=== PATIENT | male | born 1950 | race Hispanic/Latino ===

== ENCOUNTER 2019-10-05 08:37 | Inpatient (IN) | payer MEDICARE ==
[2019-10-05] MEDS: INSULIN REGULAR, HUMAN 100 UNITS/1 ML SUB-Q SCH ×2 (17:16→21:40)
[2019-10-05 21:05] LABS: Hematocrit 34.3 % (35.5-45.6); Hemoglobin 11.1 gm/dl (11.8-15.2); Mean Corpuscular HGB Conc 32 % (32-34); Mean Corpuscular Volume 80 fl (84-94); Platelet Count 218 K/mm3 (140-440); Red Blood Count 4.29 M/mm3 (3.65-5.03); Red Cell Distribution Width 18.9 % (13.2-15.2)
[2019-10-05 21:14] LABS: Calcium 9.3 mg/dL (8.4-10.2)
[2019-10-05 21:34] LABS: Chol/HDL Ratio 2.11 %
--- NOTE | 2019-10-06 07:22 | History and Physical Report ---
GP History & Physical - History of Present Illness Date of admission: 10/05/19 Date of Examination: 10/06/19 Reason for Admission: Danger to self Chief Complaint: Found in a ditch and confused History of Present Illness: 69 year old, , disabled male, admitted onto unit at 1426 via stretcher accompanied by 2 EMS personnel 10/05/2019. Patient has a medical history of COPD, DM, GERD, HTN, pancreatitis, Hepatitis C, arthritis, psychiatric hx of depression and anxiety. Per reports, admitted to [facility] twice. The first visit, patient was mildly confused with acute renal failure, with creatinine of 2.57, he was treated, and left AMA. During his second admission, it was reported police found him in a ditch, where he was too weak to ambulate. Patient transferred and treated in ICU, during admission, patient did not recall falling into a ditch. When meeting with the patient today he presented as calm, cooperative and pleasant. Patient stated that he has been battling with depression and anxiety for 20 years and was prescribed Elevil, Temazepan, Xanax and Cymbalta. He stated that the Xanax which he has been taking for 1 year benefits his sleep well and he wants to continue taking it. His only complaint is that the medication help him sleep so well that he always have these vivid dreams but he also cannot sleep without it. The concern was expressed that Xanax may be the cause of the patient loosing his memory, so patient is open to exploring new medications and is awaiting his new treatment plan. Patient stated that he then begin having problems remembering things or being out of it about a month ago. When asking the patient if he could recall what happened he stated, "They say they found me in a ditch but I don't remember that, last thing I remember was sitting next to two really nice officers and they talked to me and brought me to the hospital". Patient is A&O x 4, denied dementia diagnosis, but states that the incident of wondering off and not having any recall has happened more than once. Patient denies drinking and confirms that he smokes Marijuana socially with friends. He states that his mood is great and he feels great. Patient denies SI/HI/AVH, denies hallucination and paranoia. Pt confirms that he has a history of psychiatric problems and attempted suicide 10 years ago at a long term by taking some pills but regretted it and asked that 911 be called. Patient denies any family history of psych problems, denies involvement with the law, and denies having a gun. MSE Orientation: A&Ox4 Affect: Calm Mood: Pleasant Thought Process: Organized Perceptions: reality Speech: normal pace Concentration: focused Motor activity: normal Level of consciousness: alert, aware and oriented Memory: Impaired Interaction: Cooperative and Pleasant Mini-Mental Status Exam: 19 out of 30 Legal Status: Voluntary Patient Problems: Current Active Problems Acute psychosis (Acute) Dementia with behavioral disturbance (Acute) MDD (major depressive disorder), recurrent episode, moderate (Acute) Reaction to Hospitalization: Accepting Medications and Allergies Allergies Allergy/AdvReac Type Severity Reaction Status Date / Time Penicillins AdvReac Hives Verified 10/05/19 10:10 Home Medications Medication Instructions Recorded Confirmed Last Taken Type Amitriptyline [Elavil] 50 mg PO DAILY 10/05/19 10/05/19 Unknown History DULoxetine [Cymbalta] 30 mg PO DAILY 10/05/19 10/05/19 Unknown History Gabapentin [Neurontin] 800 mg PO TID 10/05/19 10/05/19 Unknown History Lasix TAB 20 mg PO PRN PRN 10/05/19 10/05/19 Unknown History NIFEdipine XL [Procardia Xl] 90 mg PO DAILY 10/05/19 10/05/19 Unknown History Omeprazole 40 mg PO DAILY 10/05/19 10/05/19 Unknown History Simvastatin 10 mg PO HS 10/05/19 10/05/19 Unknown History Temazepam [Restoril] 30 mg PO HS 10/05/19 10/05/19 Unknown History metFORMIN XR 750 mg PO DAILY 10/05/19 10/05/19 Unknown History Active Meds: Active Medications Insulin Human Regular (Humulin R) 0 units SUB-Q [facility]; Protocol Last Admin: 10/05/19 21:40 Dose: 4 units Documented by: Substance History - Substance History Drug Use: marijuana Hx Tobacco Use: Yes Tobacco Type: Cigarettes Alcohol Use: No Past psychiatric history - Past Medical History Past Medical History: COPD, diabetes, GERD, hypertension, other (pancreatitis, Hep C, Arthritis) - past Psychiatric treatment and history Psych: Anxiety, Depression - Social History Social history: Review of Systems Psychiatric: anxiety, memory loss, depression, confusion Results - Results Labs/Vitals: Laboratory Last Values WBC 7.2 K/mm3 (4.5-11.0) 10/05/19 20:39 RBC 4.29 M/mm3 (3.65-5.03) 10/05/19 20:39 Hgb 11.1 gm/dl (11.8-15.2) L 10/05/19 20:39 Hct 34.3 % (35.5-45.6) L 10/05/19 20:39 MCV 80 fl (84-94) L 10/05/19 20:39 MCH 26 pg (28-32) L 10/05/19 20:39 MCHC 32 % (32-34) 10/05/19 20:39 RDW 18.9 % (13.2-15.2) H 10/05/19 20:39 Plt Count 218 K/mm3 (140-440) 10/05/19 20:39 Lymph % (Auto) [place] 10/05/19 20:39 [place] % (Auto) [employer] [place] 10/05/19 20:39 Eos % (Auto) [place] 10/05/19 20:39 Baso % (Auto) [place] 10/05/19 20:39 Lymph # [place] 10/05/19 20:39 [place] # [employer] [place] 10/05/19 20:39 Eos # [place] 10/05/19 20:39 Baso # [place] 10/05/19 20:39 Seg Neutrophils % [place] 10/05/19 20:39 Seg Neutrophils # [place] 10/05/19 20:39 Sodium 138 mmol/L (137-145) 10/05/19 20:37 Potassium 4.8 mmol/L (3.6-5.0) 10/05/19 20:37 Chloride 100.5 mmol/L (98-107) 10/05/19 20:37 Carbon Dioxide 20 mmol/L (22-30) L 10/05/19 20:37 Anion Gap 22 mmol/L 10/05/19 20:37 BUN 38 mg/dL (9-20) H 10/05/19 20:37 Creatinine 1.3 mg/dL (0.8-1.5) 10/05/19 20:37 Estimated GFR 55 ml/min 10/05/19 20:37 BUN/Creatinine Ratio 29 % 10/05/19 20:37 Glucose 317 mg/dL (75-100) H 10/05/19 20:37 POC Glucose 328 (70-105) H 10/05/19 20:21 Hemoglobin A1c 7.3 % (4-6) H 10/05/19 20:34 Calcium 9.3 mg/dL (8.4-10.2) 10/05/19 20:37 Total Bilirubin 0.20 mg/dL (0.1-1.2) 10/05/19 20:37 AST 44 units/L (5-40) H 10/05/19 20:37 ALT 85 units/L (7-56) H 10/05/19 20:37 Alkaline Phosphatase 301 units/L (35-129) H 10/05/19 20:37 Total Protein 7.8 g/dL (6.3-8.2) 10/05/19 20:37 Albumin 4.0 g/dL (3.9-5) 10/05/19 20:37 Albumin/Globulin Ratio 1.1 % 10/05/19 20:37 Triglycerides 46 mg/dL (2-149) 10/05/19 20:37 Cholesterol 190 mg/dL (50-199) 10/05/19 20:37 LDL Cholesterol Direct 97 mg/dL (50-130) 10/05/19 20:37 HDL Cholesterol 90 mg/dL (40-59) H 10/05/19 20:37 Cholesterol/HDL Ratio 2.11 % 10/05/19 20:37 Last Vital Signs Temp 97.6 F 10/05/19 19:45 Pulse 82 10/05/19 19:45 Resp 20 10/05/19 19:45 BP 147/72 10/05/19 19:45 Pulse Ox 97 10/05/19 19:45 Physical Examination - Constitutional Vitals: Vital Signs Temp Pulse Resp BP Pulse Ox 97.6 F 82 20 147/72 97 10/05/19 19:45 10/05/19 19:45 10/05/19 19:45 10/05/19 19:45 10/05/19 19:45 Temperature -Last 24 Hours Temperature 97.6 F Temperature 97.8 F General appearance: Present: no acute distress - EENT Eyes: Present: PERRL, EOM intact ENT: hearing intact, clear oral mucosa - Neck Neck: Present: supple, normal ROM - Respiratory Respiratory effort: normal Mental Status Exam - Vital signs Last Vital Signs Temp 97.6 F 10/05/19 19:45 Pulse 82 10/05/19 19:45 Resp 20 10/05/19 19:45 BP 147/72 10/05/19 19:45 Pulse Ox 97 10/05/19 19:45 Assessment and Plan - Psychiatric problem (1) Acute psychosis Current Visit: Yes Status: Acute plan to address problem: Patient will be admitted for inpatient psychiatric evaluation, medication adjustment and close monitoring The patient's behavior, mood, sleep and appetite will be closely monitored. Patient will be enrolled in individual and group therapeutic sessions and encouraged to attend. Patient will be provided with a safe and structured environment. Patient's physical health needs will be addressed by the Hospitalist. Social Assessment will be completed and the [employer] will work with patient and family to ensure a suitable and safe disposition Medication adjustment will be made as clinically indicated The patient agreed on the treatment plan, understood the risk, benefit, alternative treatment, potential consequence of no treatment, and gave informed consent. (2) MDD (major depressive disorder), recurrent episode, moderate Current Visit: Yes Status: Acute (3) Dementia with behavioral disturbance Current Visit: Yes Status: Acute Physician Certification - Certification Statement Physician Certification Statement: This is an acknowledgement statement that JOHN MONGE is a 69 year old M who requires inpatient psychiatric admission for treatment which could reasonably be expected to improve the patient's condition for Estimated period of time patient will need to remain in the hospital: [ ] Plan for post-hospital care: [ ]
[2019-10-06] MEDS: INSULIN REGULAR, HUMAN 100 UNITS/1 ML SUB-Q SCH ×4 (08:11→22:18)
[2019-10-06] MEDS ORDERED: NON-FORMULARY EACH (Lasix Tab 20 MG) PO PRN (10:45)
[2019-10-06] MEDS ORDERED: METFORMIN 750 MG PO SCH (11:00)
[2019-10-06] MEDS ORDERED: NON-FORMULARY EACH (Omeprazole [Omeprazole] 40 MG) PO SCH (11:00)
[2019-10-06] MEDS ORDERED: DULoxetine 30 MG CAP PO SCH (11:00)
[2019-10-06] MEDS ORDERED: FUROSEMIDE 20 MG TAB PO PRN (11:39)
[2019-10-06] MEDS: clonazePAM 0.5 MG TAB PO SCH ×2 (12:55→21:27)
[2019-10-06] MEDS: NIFEdipine XL 90 MG TAB PO SCH (12:55)
[2019-10-06] MEDS: PANTOPRAZOLE 40 MG TAB PO SCH (12:55)
[2019-10-06] MEDS ORDERED: NON-FORMULARY EACH (Gabapentin [Neurontin] 800 MG) PO SCH (14:00)
[2019-10-06] MEDS: GABAPENTIN 400 MG CAP PO SCH ×2 (15:24→21:26)
--- NOTE | 2019-10-06 16:17 | Consultation ---
History of Present Illness - Reason for Consult Consult date: 10/06/19 Hypertension, Diabetes, CHF Requesting physician: MARYLIN TERRY - History of Present Illness patient is 69 yo admitted to Geripsych unit for acute psycosis, depression. he has multiple medical co-morbidities including diabetes, hypertension, CHF, COPD. Hepatitis C which he says was treated 3 yrs ago. The hospitalist service has been consulted for management of multiple medical co-morbidities. Of note he recently had TATUM. Today no chest pain, no shortness of breath. Past History Past Medical History: COPD, diabetes, GERD, hypertension, other (pancreatitis, Hep C, Arthritis) Past Surgical History: cholecystectomy, Other (Left scrotal mass,LN biopsy,broken thumb) Social history: , smoking (Smokes 1 pack/day). denies: alcohol abuse Family history: no significant family history Medications and Allergies Allergies Allergy/AdvReac Type Severity Reaction Status Date / Time Penicillins AdvReac Hives Verified 10/05/19 10:10 Home Medications Medication Instructions Recorded Confirmed Last Taken Type Amitriptyline [Elavil] 50 mg PO DAILY 10/05/19 10/05/19 Unknown History DULoxetine [Cymbalta] 30 mg PO DAILY 10/05/19 10/05/19 Unknown History Gabapentin [Neurontin] 800 mg PO TID 10/05/19 10/05/19 Unknown History Lasix TAB 20 mg PO PRN PRN 10/05/19 10/05/19 Unknown History NIFEdipine XL [Procardia Xl] 90 mg PO DAILY 10/05/19 10/05/19 Unknown History Omeprazole 40 mg PO DAILY 10/05/19 10/05/19 Unknown History Simvastatin 10 mg PO HS 10/05/19 10/05/19 Unknown History Temazepam [Restoril] 30 mg PO HS 10/05/19 10/05/19 Unknown History metFORMIN XR 750 mg PO DAILY 10/05/19 10/05/19 Unknown History Active Meds: Active Medications Clonazepam (Klonopin) 1 mg PO BID [facility] Last Admin: 10/06/19 12:55 Dose: 1 mg Documented by: Furosemide (Lasix) 20 mg PO PRN PRN PRN Reason: Edema Gabapentin (Gabapentin) 800 mg PO TID [facility] Last Admin: 10/06/19 15:24 Dose: 800 mg Documented by: Insulin Human Regular (Humulin R) 0 units SUB-Q [facility]; Protocol Last Admin: 10/06/19 12:54 Dose: 2 units Documented by: Mirtazapine (Remeron) 15 mg PO QHS [facility] Miscellaneous Medication (Metformin Xr) 750 mg PO DAILY [facility] Nifedipine (Procardia Xl) 90 mg PO DAILY [facility] Last Admin: 10/06/19 12:55 Dose: 90 mg Documented by: Pantoprazole Sodium (Protonix) 40 mg PO DAILY [facility] Last Admin: 10/06/19 12:55 Dose: 40 mg Documented by: Pravastatin Sodium (Pravachol) 20 mg PO QHS [facility] Exam - Physical Exam Narrative exam: Gen: Not in acute distress, sitting up in chair, HEENT: Normocephalic, atraumatic Neck: supple, no JVD Heart: S1 and S2 reg, no murmurs, rubs or gallop Lungs: Clear to auscultation bilaterally, Abd: soft, non tender, non distended, normal BS, Ext: No edema, no clubbing, no cyanosis Neuro: Awake, alert, oriented X 3, no focal neurological signs - Constitutional Vitals: Temp Pulse Resp BP Pulse Ox 97.6 F 82 20 147/72 97 10/05/19 19:45 10/05/19 19:45 10/05/19 19:45 10/05/19 19:45 10/05/19 19:45 Results - Labs CBC & Chem 7: 10/05/19 20:39 10/05/19 20:37 Labs: Abnormal lab results 10/05/19 10/05/19 10/05/19 Range/Units 16:58 20:21 20:34 Hgb (11.8-15.2) gm/dl Hct (35.5-45.6) % MCV (84-94) fl MCH (28-32) pg RDW (13.2-15.2) % Carbon Dioxide (22-30) mmol/L BUN (9-20) mg/dL Glucose (75-100) mg/dL POC Glucose 362 H 328 H (70-105) Hemoglobin A1c 7.3 H (4-6) % AST (5-40) units/L ALT (7-56) units/L Alkaline Phosphatase (35-129) units/L HDL Cholesterol (40-59) mg/dL 10/05/19 10/05/19 10/06/19 Range/Units 20:37 20:39 08:04 Hgb 11.1 L (11.8-15.2) gm/dl Hct 34.3 L (35.5-45.6) % MCV 80 L (84-94) fl MCH 26 L (28-32) pg RDW 18.9 H (13.2-15.2) % Carbon Dioxide 20 L (22-30) mmol/L BUN 38 H (9-20) mg/dL Glucose 317 H (75-100) mg/dL POC Glucose 149 H (70-105) Hemoglobin A1c (4-6) % AST 44 H (5-40) units/L ALT 85 H (7-56) units/L Alkaline Phosphatase 301 H (35-129) units/L HDL Cholesterol 90 H (40-59) mg/dL 10/06/19 Range/Units 12:34 Hgb (11.8-15.2) gm/dl Hct (35.5-45.6) % MCV (84-94) fl MCH (28-32) pg RDW (13.2-15.2) % Carbon Dioxide (22-30) mmol/L BUN (9-20) mg/dL Glucose (75-100) mg/dL POC Glucose 235 H (70-105) Hemoglobin A1c (4-6) % AST (5-40) units/L ALT (7-56) units/L Alkaline Phosphatase (35-129) units/L HDL Cholesterol (40-59) mg/dL Assessment and Plan Acute Psychosis Admitted to Geripsych unit management as per Psychiatrist Depression meds as per Psychiatry Diabetes mellitus type 2 was on Metformin at home Add Novolin 70/30 for better control fingerstick glucose qac and hs Hypertension Resumed home meds Monitor BP Chronic CHF On Lasix if leg edema History of Hep C. says he wqas treated 3 yrs ago COPD stable No SOB Elevated LFT Unclear if this is related to Hep C Repeat CMP in am Arthritis Thanks Dr. Terry for consulting us. Will follow peripherally.
[2019-10-06] MEDS: PRAVASTATIN 20 MG TAB PO SCH (21:26)
[2019-10-06] MEDS: MIRTAZAPINE 15 MG TAB PO SCH (21:27)
[2019-10-06] MEDS ORDERED: NON-FORMULARY EACH (Simvastatin [Simvastatin] 10 MG) PO SCH (22:00)
[2019-10-06] MEDS: ACETAMINOPHEN 325 MG TAB PO PRN (22:17)
[2019-10-07] MEDS: INSULIN REGULAR, HUMAN 100 UNITS/1 ML SUB-Q SCH ×4 (07:53→21:15)
[2019-10-07] MEDS: metFORMIN 500 MG TAB PO SCH ×2 (09:38→16:35)
[2019-10-07] MEDS: NIFEdipine XL 90 MG TAB PO SCH (09:38)
[2019-10-07] MEDS: GABAPENTIN 400 MG CAP PO SCH ×3 (09:38→21:13)
[2019-10-07] MEDS: clonazePAM 0.5 MG TAB PO SCH ×2 (09:38→21:14)
[2019-10-07] MEDS: INSULIN NPH/REGULAR 70/30 INJ SUB-Q SCH ×2 (09:46→21:04)
[2019-10-07 10:54] LABS: Hematocrit 35.3 % (35.5-45.6); Hemoglobin 11.5 gm/dl (11.8-15.2); Mean Corpuscular HGB Conc 33 % (32-34); Mean Corpuscular Volume 78 fl (84-94); Platelet Count 222 K/mm3 (140-440); Red Blood Count 4.52 M/mm3 (3.65-5.03); Red Cell Distribution Width 18.3 % (13.2-15.2)
[2019-10-07 11:00] LABS: Alanine Aminotransferase 72 units/L (7-56); Albumin 3.6 g/dL (3.9-5); BUN/Creatinine Ratio 24; Blood Urea Nitrogen 29 mg/dL (9-20); Calcium 8.7 mg/dL (8.4-10.2); Hemolysis Index 5
[2019-10-07] MEDS: PANTOPRAZOLE 40 MG TAB PO SCH (12:10)
--- NOTE | 2019-10-07 13:14 | Progress Note ---
Subjective Date of service: 10/07/19 Subjective Comment: Patient seen this morning. He is alert, fully oriented, calm and pleasant. He reports good mood. He denies SI/HI/AVH/Paranoia. He is compliant with meds and denies side effects. Per Nursing Notes: patient is alert and oriented x's 4. he is calm, pleasant, and cooperative. currently compliant with PO medications. denies si/hi/avh. patient c/o having nightmares last night. patient is interacting appropriately with his peers. patient ambulates independently and voices any concerns. no signs of agitation noted. attends group. will continue to monitor for safety. Objective - Criteria for Continued Treatment Criteria for Continued Treatment: Improving Level of Functioning, Stablizing Level of Functioning, Improving Emotional/Socia - Mental Status Mental Status: Alert - Objective Observation Participation Level: Full Assessment and Plan - Patient Problems (1) Acute psychosis Current Visit: Yes Status: Acute Plan to address problem: Patient will be admitted for inpatient psychiatric evaluation, medication adjustment and close monitoring The patient's behavior, mood, sleep and appetite will be closely monitored. Patient will be enrolled in individual and group therapeutic sessions and encouraged to attend. Patient will be provided with a safe and structured environment. Patient's physical health needs will be addressed by the Hospitalist. Social Assessment will be completed and the Psych Rn will work with patient and family to ensure a suitable and safe disposition Medication adjustment will be made as clinically indicated The patient agreed on the treatment plan, understood the risk, benefit, alternative treatment, potential consequence of no treatment, and gave informed consent. (2) MDD (major depressive disorder), recurrent episode, moderate Current Visit: Yes Status: Acute (3) Dementia with behavioral disturbance Current Visit: Yes Status: Acute Medications and Allergies Allergies Allergy/AdvReac Type Severity Reaction Status Date / Time Penicillins AdvReac Hives Verified 10/05/19 10:10 Home Medications Medication Instructions Recorded Confirmed Last Taken Type Amitriptyline [Elavil] 50 mg PO DAILY 10/05/19 10/05/19 Unknown History DULoxetine [Cymbalta] 30 mg PO DAILY 10/05/19 10/05/19 Unknown History Gabapentin [Neurontin] 800 mg PO TID 10/05/19 10/05/19 Unknown History Lasix TAB 20 mg PO PRN PRN 10/05/19 10/05/19 Unknown History NIFEdipine XL [Procardia Xl] 90 mg PO DAILY 10/05/19 10/05/19 Unknown History Omeprazole 40 mg PO DAILY 10/05/19 10/05/19 Unknown History Simvastatin 10 mg PO HS 10/05/19 10/05/19 Unknown History Temazepam [Restoril] 30 mg PO HS 10/05/19 10/05/19 Unknown History metFORMIN XR 750 mg PO DAILY 10/05/19 10/05/19 Unknown History Active Meds: Active Medications Acetaminophen (Tylenol) 650 mg PO Q6H PRN PRN Reason: Pain, Mild (1-3) Last Admin: 10/06/19 22:17 Dose: 650 mg Documented by: Clonazepam (Klonopin) 1 mg PO BID [facility] Last Admin: 10/07/19 09:38 Dose: 1 mg Documented by: Furosemide (Lasix) 20 mg PO PRN PRN PRN Reason: Edema Gabapentin (Gabapentin) 800 mg PO TID [facility] Last Admin: 10/07/19 09:38 Dose: 800 mg Documented by: Insulin Human Isoph/Insulin Regular (Humulin 70/30) 10 unit SUB-Q [facility] Last Admin: 10/07/19 09:46 Dose: 10 unit Documented by: Insulin Human Regular (Humulin R) 0 units SUB-Q [facility]; Protocol Last Admin: 10/07/19 12:06 Dose: Not Given Documented by: Metformin HCl (Glucophage) 500 mg PO BIDDIAB [facility] Last Admin: 10/07/19 09:38 Dose: 500 mg Documented by: Mirtazapine (Remeron) 15 mg PO QHS [facility] Last Admin: 10/06/19 21:27 Dose: 15 mg Documented by: Nifedipine (Procardia Xl) 90 mg PO DAILY [facility] Last Admin: 10/07/19 09:38 Dose: 90 mg Documented by: Pantoprazole Sodium (Protonix) 40 mg PO DAILY [facility] Last Admin: 10/07/19 12:10 Dose: 40 mg Documented by: Pravastatin Sodium (Pravachol) 20 mg PO QHS [facility] Last Admin: 10/06/19 21:26 Dose: 20 mg Documented by: Results - Results Labs/Vitals: Laboratory Last Values WBC 7.5 K/mm3 (4.5-11.0) 10/07/19 10:06 RBC 4.52 M/mm3 (3.65-5.03) 10/07/19 10:06 Hgb 11.5 gm/dl (11.8-15.2) L 10/07/19 10:06 Hct 35.3 % (35.5-45.6) L 10/07/19 10:06 MCV 78 fl (84-94) L 10/07/19 10:06 MCH 26 pg (28-32) L 10/07/19 10:06 MCHC 33 % (32-34) 10/07/19 10:06 RDW 18.3 % (13.2-15.2) H 10/07/19 10:06 Plt Count 222 K/mm3 (140-440) 10/07/19 10:06 Lymph % (Auto) [place] 10/05/19 20:39 [place] % (Auto) [place] 10/05/19 20:39 Eos % (Auto) [place] 10/05/19 20:39 Baso % (Auto) [place] 10/05/19 20:39 Lymph # [place] 10/05/19 20:39 [place] # [place] 10/05/19 20:39 Eos # [place] 10/05/19 20:39 Baso # [place] 10/05/19 20:39 Seg Neutrophils % [place] 10/05/19 20:39 Seg Neutrophils # [place] 10/05/19 20:39 Sodium 139 mmol/L (137-145) 10/07/19 10:06 Potassium 4.3 mmol/L (3.6-5.0) 10/07/19 10:06 Chloride 102.5 mmol/L (98-107) 10/07/19 10:06 Carbon Dioxide 24 mmol/L (22-30) 10/07/19 10:06 Anion Gap 17 mmol/L 10/07/19 10:06 BUN 29 mg/dL (9-20) H 10/07/19 10:06 Creatinine 1.2 mg/dL (0.8-1.5) 10/07/19 10:06 Estimated GFR > 60 ml/min 10/07/19 10:06 BUN/Creatinine Ratio 24 % 10/07/19 10:06 Glucose 260 mg/dL (75-100) H 10/07/19 10:06 POC Glucose 79 (70-105) 10/07/19 12:05 Hemoglobin A1c 7.3 % (4-6) H 10/05/19 20:34 Calcium 8.7 mg/dL (8.4-10.2) 10/07/19 10:06 Total Bilirubin 0.20 mg/dL (0.1-1.2) 10/07/19 10:06 AST 40 units/L (5-40) 10/07/19 10:06 ALT 72 units/L (7-56) H 10/07/19 10:06 Alkaline Phosphatase 269 units/L (35-129) H 10/07/19 10:06 Total Protein 6.8 g/dL (6.3-8.2) 10/07/19 10:06 Albumin 3.6 g/dL (3.9-5) L 10/07/19 10:06 Albumin/Globulin Ratio 1.1 % 10/07/19 10:06 Triglycerides 46 mg/dL (2-149) 10/05/19 20:37 Cholesterol 190 mg/dL (50-199) 10/05/19 20:37 LDL Cholesterol Direct 97 mg/dL (50-130) 10/05/19 20:37 HDL Cholesterol 90 mg/dL (40-59) H 10/05/19 20:37 Cholesterol/HDL Ratio 2.11 % 10/05/19 20:37 Last Vital Signs Temp 97.5 F L 10/07/19 08:05 Pulse 82 10/07/19 08:05 Resp 18 10/06/19 23:17 BP 148/88 10/07/19 08:05 Pulse Ox 97 10/07/19 08:05 Mental Status Exam - Vital signs Last Vital Signs Temp 97.5 F L 10/07/19 08:05 Pulse 82 10/07/19 08:05 Resp 18 10/06/19 23:17 BP 148/88 10/07/19 08:05 Pulse Ox 97 10/07/19 08:05 - Exam Orientation: time, place, person Affect: normal Mood: congruent with affect Thought Process: Intact Perceptions: none Speech: normal rate and pattern Concentration: focused Motor activity: normal Level of consciousness: alert Memory: Intact Interaction: cooperative
[2019-10-07] MEDS: ACETAMINOPHEN 325 MG TAB PO PRN (21:08)
[2019-10-07] MEDS: PRAVASTATIN 20 MG TAB PO SCH (21:13)
[2019-10-07] MEDS: MIRTAZAPINE 15 MG TAB PO SCH (21:13)
[2019-10-08] MEDS: PANTOPRAZOLE 40 MG TAB PO SCH (11:09)
[2019-10-08] MEDS: INSULIN REGULAR, HUMAN 100 UNITS/1 ML SUB-Q SCH ×4 (11:09→21:57)
[2019-10-08] MEDS: clonazePAM 0.5 MG TAB PO SCH ×2 (11:09→21:17)
[2019-10-08] MEDS: NIFEdipine XL 90 MG TAB PO SCH (11:10)
[2019-10-08] MEDS: INSULIN NPH/REGULAR 70/30 INJ SUB-Q SCH ×2 (11:11→17:53)
[2019-10-08] MEDS: GABAPENTIN 400 MG CAP PO SCH ×3 (11:13→20:13)
[2019-10-08] MEDS: metFORMIN 500 MG TAB PO SCH ×2 (11:13→17:52)
--- NOTE | 2019-10-08 13:56 | Progress Note ---
Subjective Date of service: 10/08/19 Principal diagnosis: Acute psychosis, unspecificied Subjective Comment: Patient seen this morning. He is alert, fully oriented, calm and pleasant. He reports good mood. He denies SI/HI/AVH/Paranoia. He is compliant with meds and denies side effects. Per Nursing Notes: pt is A&O x4, calm, cooperative w/ staff and compliant w/ meds. pt denies SI and AVH. pt has been engaged in groups and social w/ others. thoughts are organized. pt is independent w/ ADL's and has a steady gait. appetite good. v/s stable, will continue to monitor. Objective - Criteria for Continued Treatment Criteria for Continued Treatment: Improving Level of Functioning, Stablizing Level of Functioning, Improving Emotional/Socia - Mental Status Mental Status: Alert - Objective Observation Participation Level: Full Assessment and Plan - Patient Problems (1) Acute psychosis Current Visit: Yes Status: Acute Plan to address problem: Patient will be admitted for inpatient psychiatric evaluation, medication adjustment and close monitoring The patient's behavior, mood, sleep and appetite will be closely monitored. Patient will be enrolled in individual and group therapeutic sessions and encouraged to attend. Patient will be provided with a safe and structured environment. Patient's physical health needs will be addressed by the Hospitalist. Social Assessment will be completed and the Elementary School Reading Teacher will work with patient and family to ensure a suitable and safe disposition Medication adjustment will be made as clinically indicated The patient agreed on the treatment plan, understood the risk, benefit, alternative treatment, potential consequence of no treatment, and gave informed consent. (2) MDD (major depressive disorder), recurrent episode, moderate Current Visit: Yes Status: Acute (3) Dementia with behavioral disturbance Current Visit: Yes Status: Acute Medications and Allergies Allergies Allergy/AdvReac Type Severity Reaction Status Date / Time Penicillins AdvReac Hives Verified 10/05/19 10:10 Home Medications Medication Instructions Recorded Confirmed Last Taken Type Amitriptyline [Elavil] 50 mg PO DAILY 10/05/19 10/05/19 Unknown History DULoxetine [Cymbalta] 30 mg PO DAILY 10/05/19 10/05/19 Unknown History Gabapentin [Neurontin] 800 mg PO TID 10/05/19 10/05/19 Unknown History Lasix TAB 20 mg PO PRN PRN 10/05/19 10/05/19 Unknown History NIFEdipine XL [Procardia Xl] 90 mg PO DAILY 10/05/19 10/05/19 Unknown History Omeprazole 40 mg PO DAILY 10/05/19 10/05/19 Unknown History Simvastatin 10 mg PO HS 10/05/19 10/05/19 Unknown History Temazepam [Restoril] 30 mg PO HS 10/05/19 10/05/19 Unknown History metFORMIN XR 750 mg PO DAILY 10/05/19 10/05/19 Unknown History Active Meds: Active Medications Acetaminophen (Tylenol) 650 mg PO Q6H PRN PRN Reason: Pain, Mild (1-3) Last Admin: 10/07/19 21:08 Dose: 650 mg Documented by: Clonazepam (Klonopin) 1 mg PO BID ON LICENSE OF [facility] Last Admin: 10/08/19 11:09 Dose: 1 mg Documented by: Furosemide (Lasix) 20 mg PO PRN PRN PRN Reason: Edema Gabapentin (Gabapentin) 800 mg PO TID ON LICENSE OF [facility] Last Admin: 10/08/19 11:13 Dose: 800 mg Documented by: Insulin Human Isoph/Insulin Regular (Humulin 70/30) 10 unit SUB-Q BIDDIAB ON LICENSE OF [facility] Last Admin: 10/08/19 11:11 Dose: 10 unit Documented by: Insulin Human Regular (Humulin R) 0 units SUB-Q [facility] ON LICENSE OF [facility]; Protocol Last Admin: 10/08/19 11:09 Dose: Not Given Documented by: Metformin HCl (Glucophage) 500 mg PO BIDDIAB ON LICENSE OF [facility] Last Admin: 10/08/19 11:13 Dose: 500 mg Documented by: Mirtazapine (Remeron) 15 mg PO QHS ON LICENSE OF [facility] Last Admin: 10/07/19 21:13 Dose: 15 mg Documented by: Nifedipine (Procardia Xl) 90 mg PO DAILY ON [facility] OF [facility] Last Admin: 10/08/19 11:10 Dose: 90 mg Documented by: Pantoprazole Sodium (Protonix) 40 mg PO DAILY ON LICENSE OF [facility] Last Admin: 10/08/19 11:09 Dose: 40 mg Documented by: Pravastatin Sodium (Pravachol) 20 mg PO QHS ON LICENSE OF [facility] Last Admin: 10/07/19 21:13 Dose: 20 mg Documented by: Results - Results Labs/Vitals: Laboratory Last Values WBC 7.5 K/mm3 (4.5-11.0) 10/07/19 10:06 RBC 4.52 M/mm3 (3.65-5.03) 10/07/19 10:06 Hgb 11.5 gm/dl (11.8-15.2) L 10/07/19 10:06 Hct 35.3 % (35.5-45.6) L 10/07/19 10:06 MCV 78 fl (84-94) L 10/07/19 10:06 MCH 26 pg (28-32) L 10/07/19 10:06 MCHC 33 % (32-34) 10/07/19 10:06 RDW 18.3 % (13.2-15.2) H 10/07/19 10:06 Plt Count 222 K/mm3 (140-440) 10/07/19 10:06 Lymph % (Auto) Chiropractic Assistant 10/05/19 20:39 [place] % (Auto) Chiropractic Assistant 10/05/19 20:39 Eos % (Auto) Chiropractic Assistant 10/05/19 20:39 Baso % (Auto) Chiropractic Assistant 10/05/19 20:39 Lymph # Chiropractic Assistant 10/05/19 20:39 [place] # Chiropractic Assistant 10/05/19 20:39 Eos # Chiropractic Assistant 10/05/19 20:39 Baso # Chiropractic Assistant 10/05/19 20:39 Seg Neutrophils % Chiropractic Assistant 10/05/19 20:39 Seg Neutrophils # Chiropractic Assistant 10/05/19 20:39 Sodium 139 mmol/L (137-145) 10/07/19 10:06 Potassium 4.3 mmol/L (3.6-5.0) 10/07/19 10:06 Chloride 102.5 mmol/L (98-107) 10/07/19 10:06 Carbon Dioxide 24 mmol/L (22-30) 10/07/19 10:06 Anion Gap 17 mmol/L 10/07/19 10:06 BUN 29 mg/dL (9-20) H 10/07/19 10:06 Creatinine 1.2 mg/dL (0.8-1.5) 10/07/19 10:06 Estimated GFR > 60 ml/min 10/07/19 10:06 BUN/Creatinine Ratio 24 % 10/07/19 10:06 Glucose 260 mg/dL (75-100) H 10/07/19 10:06 POC Glucose 156 (70-105) H 10/08/19 11:50 Hemoglobin A1c 7.3 % (4-6) H 10/05/19 20:34 Calcium 8.7 mg/dL (8.4-10.2) 10/07/19 10:06 Total Bilirubin 0.20 mg/dL (0.1-1.2) 10/07/19 10:06 AST 40 units/L (5-40) 10/07/19 10:06 ALT 72 units/L (7-56) H 10/07/19 10:06 Alkaline Phosphatase 269 units/L (35-129) H 10/07/19 10:06 Total Protein 6.8 g/dL (6.3-8.2) 10/07/19 10:06 Albumin 3.6 g/dL (3.9-5) L 10/07/19 10:06 Albumin/Globulin Ratio 1.1 % 10/07/19 10:06 Triglycerides 46 mg/dL (2-149) 10/05/19 20:37 Cholesterol 190 mg/dL (50-199) 10/05/19 20:37 LDL Cholesterol Direct 97 mg/dL (50-130) 10/05/19 20:37 HDL Cholesterol 90 mg/dL (40-59) H 10/05/19 20:37 Cholesterol/HDL Ratio 2.11 % 10/05/19 20:37 Last Vital Signs Temp 98.0 F 10/08/19 09:40 Pulse 89 10/08/19 09:40 Resp 16 10/08/19 10:00 BP 143/72 10/08/19 09:40 Pulse Ox 98 10/08/19 10:00
[2019-10-08] MEDS: ACETAMINOPHEN 325 MG TAB PO PRN (18:01)
[2019-10-08] MEDS: MIRTAZAPINE 15 MG TAB PO SCH (21:17)
[2019-10-08] MEDS: PRAVASTATIN 20 MG TAB PO SCH (21:17)
[2019-10-09] MEDS: INSULIN REGULAR, HUMAN 100 UNITS/1 ML SUB-Q SCH ×4 (09:13→21:30)
[2019-10-09] MEDS: PANTOPRAZOLE 40 MG TAB PO SCH (09:14)
[2019-10-09] MEDS: clonazePAM 0.5 MG TAB PO SCH ×2 (09:14→21:01)
[2019-10-09] MEDS: GABAPENTIN 400 MG CAP PO SCH ×3 (09:14→20:15)
[2019-10-09] MEDS: ACETAMINOPHEN 325 MG TAB PO PRN (09:15)
[2019-10-09] MEDS: metFORMIN 500 MG TAB PO SCH ×2 (09:15→19:15)
[2019-10-09] MEDS: INSULIN NPH/REGULAR 70/30 INJ SUB-Q SCH ×2 (09:53→17:05)
--- NOTE | 2019-10-09 12:53 | Progress Note ---
Subjective Date of service: 10/09/19 Principal diagnosis: Acute psychosis, unspecificied Subjective Comment: Patient seen this morning. He is alert, fully oriented, calm and pleasant. He reports good mood. He denies SI/HI/AVH/Paranoia. He is compliant with meds and denies side effects. Per Nursing Notes: pt is A&O x4, calm, cooperative w/ staff and compliant w/ meds. pt denies SI and AVH. pt has been engaged in groups and social w/ others. thoughts are organized. pt is independent w/ ADL's and has a steady gait. appetite good. v/s stable, will continue to monitor. Objective - Criteria for Continued Treatment Criteria for Continued Treatment: Improving Level of Functioning, Stablizing Level of Functioning - Mental Status Mental Status: Alert - Objective Observation Participation Level: Full Assessment and Plan - Patient Problems (1) Acute psychosis Current Visit: Yes Status: Acute Plan to address problem: Patient will be admitted for inpatient psychiatric evaluation, medication adjustment and close monitoring The patient's behavior, mood, sleep and appetite will be closely monitored. Patient will be enrolled in individual and group therapeutic sessions and encouraged to attend. Patient will be provided with a safe and structured environment. Patient's physical health needs will be addressed by the Hospitalist. Social Assessment will be completed and the Oil Rag Washer will work with patien t and family to ensure a suitable and safe disposition Medication adjustment will be made as clinically indicated The patient agreed on the treatment plan, understood the risk, benefit, alternative treatment, potential consequence of no treatment, and gave informed consent. (2) MDD (major depressive disorder), recurrent episode, moderate Current Visit: Yes Status: Acute (3) Dementia with behavioral disturbance Current Visit: Yes Status: Acute Medications and Allergies Allergies Allergy/AdvReac Type Severity Reaction Status Date / Time Penicillins AdvReac Hives Verified 10/05/19 10:10 Home Medications Medication Instructions Recorded Confirmed Last Taken Type Amitriptyline [Elavil] 50 mg PO DAILY 10/05/19 10/05/19 Unknown History DULoxetine [Cymbalta] 30 mg PO DAILY 10/05/19 10/05/19 Unknown History Gabapentin [Neurontin] 800 mg PO TID 10/05/19 10/05/19 Unknown History Lasix TAB 20 mg PO PRN PRN 10/05/19 10/05/19 Unknown History NIFEdipine XL [Procardia Xl] 90 mg PO DAILY 10/05/19 10/05/19 Unknown History Omeprazole 40 mg PO DAILY 10/05/19 10/05/19 Unknown History Simvastatin 10 mg PO HS 10/05/19 10/05/19 Unknown History Temazepam [Restoril] 30 mg PO HS 10/05/19 10/05/19 Unknown History metFORMIN XR 750 mg PO DAILY 10/05/19 10/05/19 Unknown History Active Meds: Active Medications Acetaminophen (Tylenol) 650 mg PO Q6H PRN PRN Reason: Pain, Mild (1-3) Last Admin: 10/09/19 09:15 Dose: 650 mg Documented by: Clonazepam (Klonopin) 1 mg PO BID [facility] Last Admin: 10/09/19 09:14 Dose: 1 mg Documented by: Furosemide (Lasix) 20 mg PO PRN PRN PRN Reason: Edema Gabapentin (Gabapentin) 800 mg PO TID [facility] Last Admin: 10/09/19 09:14 Dose: 800 mg Documented by: Insulin Human Isoph/Insulin Regular (Humulin 70/30) 10 unit SUB-Q BIDDIAB [facility] Last Admin: 10/09/19 09:53 Dose: 10 unit Documented by: Insulin Human Regular (Humulin R) 0 units SUB-Q [facility]; Protocol Last Admin: 10/09/19 09:13 Dose: 2 units Documented by: Metformin HCl (Glucophage) 500 mg PO BIDDIAB [facility] Last Admin: 10/09/19 09:15 Dose: 500 mg Documented by: Mirtazapine (Remeron) 15 mg PO QHS [facility] Last Admin: 10/08/19 21:17 Dose: 15 mg Documented by: Nifedipine (Procardia Xl) 90 mg PO DAILY [facility] Last Admin: 10/08/19 11:10 Dose: 90 mg Documented by: Pantoprazole Sodium (Protonix) 40 mg PO DAILY [facility] Last Admin: 10/09/19 09:14 Dose: 40 mg Documented by: Pravastatin Sodium (Pravachol) 20 mg PO QHS [facility] Last Admin: 10/08/19 21:17 Dose: 20 mg Documented by: Results - Results Labs/Vitals: Laboratory Last Values WBC 7.5 K/mm3 (4.5-11.0) 10/07/19 10:06 RBC 4.52 M/mm3 (3.65-5.03) 10/07/19 10:06 Hgb 11.5 gm/dl (11.8-15.2) L 10/07/19 10:06 Hct 35.3 % (35.5-45.6) L 10/07/19 10:06 MCV 78 fl (84-94) L 10/07/19 10:06 MCH 26 pg (28-32) L 10/07/19 10:06 MCHC 33 % (32-34) 10/07/19 10:06 RDW 18.3 % (13.2-15.2) H 10/07/19 10:06 Plt Count 222 K/mm3 (140-440) 10/07/19 10:06 Lymph % (Auto) Electric Razor Assembler 10/05/19 20:39 [place] % (Auto) Electric Razor Assembler 10/05/19 20:39 Eos % (Auto) Electric Razor Assembler 10/05/19 20:39 Baso % (Auto) Electric Razor Assembler 10/05/19 20:39 Lymph # Electric Razor Assembler 10/05/19 20:39 [place] # Electric Razor Assembler 10/05/19 20:39 Eos # Electric Razor Assembler 10/05/19 20:39 Baso # Electric Razor Assembler 10/05/19 20:39 Seg Neutrophils % Electric Razor Assembler 10/05/19 20:39 Seg Neutrophils # Electric Razor Assembler 10/05/19 20:39 Sodium 139 mmol/L (137-145) 10/07/19 10:06 Potassium 4.3 mmol/L (3.6-5.0) 10/07/19 10:06 Chloride 102.5 mmol/L (98-107) 10/07/19 10:06 Carbon Dioxide 24 mmol/L (22-30) 10/07/19 10:06 Anion Gap 17 mmol/L 10/07/19 10:06 BUN 29 mg/dL (9-20) H 10/07/19 10:06 Creatinine 1.2 mg/dL (0.8-1.5) 10/07/19 10:06 Estimated GFR > 60 ml/min 10/07/19 10:06 BUN/Creatinine Ratio 24 % 10/07/19 10:06 Glucose 260 mg/dL (75-100) H 10/07/19 10:06 POC Glucose 141 (70-105) H 10/09/19 11:49 Hemoglobin A1c 7.3 % (4-6) H 10/05/19 20:34 Calcium 8.7 mg/dL (8.4-10.2) 10/07/19 10:06 Total Bilirubin 0.20 mg/dL (0.1-1.2) 10/07/19 10:06 AST 40 units/L (5-40) 10/07/19 10:06 ALT 72 units/L (7-56) H 10/07/19 10:06 Alkaline Phosphatase 269 units/L (35-129) H 10/07/19 10:06 Total Protein 6.8 g/dL (6.3-8.2) 10/07/19 10:06 Albumin 3.6 g/dL (3.9-5) L 10/07/19 10:06 Albumin/Globulin Ratio 1.1 % 10/07/19 10:06 Triglycerides 46 mg/dL (2-149) 10/05/19 20:37 Cholesterol 190 mg/dL (50-199) 10/05/19 20:37 LDL Cholesterol Direct 97 mg/dL (50-130) 10/05/19 20:37 HDL Cholesterol 90 mg/dL (40-59) H 10/05/19 20:37 Cholesterol/HDL Ratio 2.11 % 10/05/19 20:37 Last Vital Signs Temp 98.0 F 10/08/19 19:46 Pulse 102 H 10/08/19 19:46 Resp 18 10/08/19 19:46 BP 136/68 10/08/19 19:46 Pulse Ox 92 10/08/19 19:46
[2019-10-09] MEDS: NIFEdipine XL 90 MG TAB PO SCH (15:05)
[2019-10-09] MEDS: PRAVASTATIN 20 MG TAB PO SCH (21:01)
[2019-10-09] MEDS: MIRTAZAPINE 15 MG TAB PO SCH (21:02)
--- NOTE | 2019-10-10 07:30 | Progress Note ---
Subjective Date of service: 10/10/19 Principal diagnosis: Acute psychosis, unspecificied Subjective Comment: Patient seen this morning. He is alert, fully oriented, calm and pleasant. He reports good mood. He denies SI/HI/AVH/Paranoia. He is compliant with meds and denies side effects. Per Nursing Notes: patient is alert and oriented x4, calm and cooperative , interacting well with staff and peers, able to make needs known, appetite is good, patient slept 7 hours throughout the night, medication compliant, independent with ADLS, complains of right hip pain and ambulates on wheel chair, patient denies SI/HI, denies A/V/H, Objective - Criteria for Continued Treatment Criteria for Continued Treatment: Stablizing Level of Functioning - Mental Status Mental Status: Alert - Objective Observation Participation Level: Full Assessment and Plan - Patient Problems (1) Acute psychosis Current Visit: Yes Status: Acute Plan to address problem: Patient will be admitted for inpatient psychiatric evaluation, medication adjustment and close monitoring The patient's behavior, mood, sleep and appetite will be closely monitored. Patient will be enrolled in individual and group therapeutic sessions and encouraged to attend. Patient will be provided with a safe and structured environment. Patient's physical health needs will be addressed by the Hospitalist. Social Assessment will be completed and the Channel Marketing Coordinator will work with patient and family to ensure a suitable and safe disposition Medication adjustment will be made as clinically indicated The patient agreed on the treatment plan, understood the risk, benefit, alternative treatment, potential consequence of no treatment, and gave informed consent. (2) MDD (major depressive disorder), recurrent episode, moderate Current Visit: Yes Status: Acute (3) Dementia with behavioral disturbance Current Visit: Yes Status: Acute Medications and Allergies Allergies Allergy/AdvReac Type Severity Reaction Status Date / Time Penicillins AdvReac Hives Verified 10/05/19 10:10 Home Medications Medication Instructions Recorded Confirmed Last Taken Type Amitriptyline [Elavil] 50 mg PO DAILY 10/05/19 10/05/19 Unknown History DULoxetine [Cymbalta] 30 mg PO DAILY 10/05/19 10/05/19 Unknown History Gabapentin [Neurontin] 800 mg PO TID 10/05/19 10/05/19 Unknown History Lasix TAB 20 mg PO PRN PRN 10/05/19 10/05/19 Unknown History NIFEdipine XL [Procardia Xl] 90 mg PO DAILY 10/05/19 10/05/19 Unknown History Omeprazole 40 mg PO DAILY 10/05/19 10/05/19 Unknown History Simvastatin 10 mg PO HS 10/05/19 10/05/19 Unknown History Temazepam [Restoril] 30 mg PO HS 10/05/19 10/05/19 Unknown History metFORMIN XR 750 mg PO DAILY 10/05/19 10/05/19 Unknown History Active Meds: Active Medications Acetaminophen (Tylenol) 650 mg PO Q6H PRN PRN Reason: Pain, Mild (1-3) Last Admin: 10/09/19 09:15 Dose: 650 mg Documented by: Clonazepam (Klonopin) 1 mg PO BID [facility] Last Admin: 10/09/19 21:01 Dose: 1 mg Documented by: Furosemide (Lasix) 20 mg PO PRN PRN PRN Reason: Edema Gabapentin (Gabapentin) 800 mg PO TID [facility] Last Admin: 10/09/19 20:15 Dose: 800 mg Documented by: Insulin Human Isoph/Insulin Regular (Humulin 70/30) 10 unit SUB-Q BIDDIAB [facility] Last Admin: 10/09/19 17:05 Dose: 10 unit Documented by: Insulin Human Regular (Humulin R) 0 units SUB-Q [facility]; Protocol Last Admin: 10/09/19 21:30 Dose: Not Given Documented by: Metformin HCl (Glucophage) 500 mg PO BIDDIAB [facility] Last Admin: 10/09/19 19:15 Dose: Not Given Documented by: Mirtazapine (Remeron) 15 mg PO QHS [facility] Last Admin: 10/09/19 21:02 Dose: 15 mg Documented by: Nifedipine (Procardia Xl) 90 mg PO DAILY [facility] Last Admin: 10/09/19 15:05 Dose: 90 mg Documented by: Pantoprazole Sodium (Protonix) 40 mg PO DAILY [facility] Last Admin: 10/09/19 09:14 Dose: 40 mg Documented by: Pravastatin Sodium (Pravachol) 20 mg PO QHS [facility] Last Admin: 10/09/19 21:01 Dose: 20 mg Documented by: Results - Results Labs/Vitals: Laboratory Last Values WBC 7.5 K/mm3 (4.5-11.0) 10/07/19 10:06 RBC 4.52 M/mm3 (3.65-5.03) 10/07/19 10:06 Hgb 11.5 gm/dl (11.8-15.2) L 10/07/19 10:06 Hct 35.3 % (35.5-45.6) L 10/07/19 10:06 MCV 78 fl (84-94) L 10/07/19 10:06 MCH 26 pg (28-32) L 10/07/19 10:06 MCHC 33 % (32-34) 10/07/19 10:06 RDW 18.3 % (13.2-15.2) H 10/07/19 10:06 Plt Count 222 K/mm3 (140-440) 10/07/19 10:06 Lymph % (Auto) Roll Winder 10/05/19 20:39 [place] % (Auto) Roll Winder 10/05/19 20:39 Eos % (Auto) Roll Winder 10/05/19 20:39 Baso % (Auto) Roll Winder 10/05/19 20:39 Lymph # Roll Winder 10/05/19 20:39 [place] # Roll Winder 10/05/19 20:39 Eos # Roll Winder 10/05/19 20:39 Baso # Roll Winder 10/05/19 20:39 Seg Neutrophils % Roll Winder 10/05/19 20:39 Seg Neutrophils # Roll Winder 10/05/19 20:39 Sodium 139 mmol/L (137-145) 10/07/19 10:06 Potassium 4.3 mmol/L (3.6-5.0) 10/07/19 10:06 Chloride 102.5 mmol/L (98-107) 10/07/19 10:06 Carbon Dioxide 24 mmol/L (22-30) 10/07/19 10:06 Anion Gap 17 mmol/L 10/07/19 10:06 BUN 29 mg/dL (9-20) H 10/07/19 10:06 Creatinine 1.2 mg/dL (0.8-1.5) 10/07/19 10:06 Estimated GFR > 60 ml/min 10/07/19 10:06 BUN/Creatinine Ratio 24 % 10/07/19 10:06 Glucose 260 mg/dL (75-100) H 10/07/19 10:06 POC Glucose 154 (70-105) H 10/10/19 06:47 Hemoglobin A1c 7.3 % (4-6) H 10/05/19 20:34 Calcium 8.7 mg/dL (8.4-10.2) 10/07/19 10:06 Total Bilirubin 0.20 mg/dL (0.1-1.2) 10/07/19 10:06 AST 40 units/L (5-40) 10/07/19 10:06 ALT 72 units/L (7-56) H 10/07/19 10:06 Alkaline Phosphatase 269 units/L (35-129) H 10/07/19 10:06 Total Protein 6.8 g/dL (6.3-8.2) 10/07/19 10:06 Albumin 3.6 g/dL (3.9-5) L 10/07/19 10:06 Albumin/Globulin Ratio 1.1 % 10/07/19 10:06 Triglycerides 46 mg/dL (2-149) 10/05/19 20:37 Cholesterol 190 mg/dL (50-199) 10/05/19 20:37 LDL Cholesterol Direct 97 mg/dL (50-130) 10/05/19 20:37 HDL Cholesterol 90 mg/dL (40-59) H 10/05/19 20:37 Cholesterol/HDL Ratio 2.11 % 10/05/19 20:37 Last Vital Signs Temp 98.1 F 10/09/19 19:43 Pulse 96 H 10/09/19 19:43 Resp 20 10/09/19 19:43 BP 133/71 10/09/19 19:43 Pulse Ox 94 10/09/19 19:43 Mental Status Exam - Vital signs Last Vital Signs Temp 98.1 F 10/09/19 19:43 Pulse 96 H 10/09/19 19:43 Resp 20 10/09/19 19:43 BP 133/71 10/09/19 19:43 Pulse Ox 94 10/09/19 19:43 - Exam Orientation: time, place, person Affect: normal Mood: appropriate Thought Process: Intact Perceptions: none Speech: normal rate and pattern Concentration: focused Motor activity: normal Level of consciousness: alert Memory: Intact Interaction: cooperative, pleasant
[2019-10-10] MEDS: ACETAMINOPHEN 325 MG TAB PO PRN (07:40)
[2019-10-10] MEDS: INSULIN NPH/REGULAR 70/30 INJ SUB-Q SCH ×2 (08:01→16:52)
[2019-10-10] MEDS: INSULIN REGULAR, HUMAN 100 UNITS/1 ML SUB-Q SCH ×4 (08:02→21:18)
[2019-10-10] MEDS: metFORMIN 500 MG TAB PO SCH ×2 (08:08→16:52)
[2019-10-10] MEDS: GABAPENTIN 400 MG CAP PO SCH ×3 (08:08→20:21)
[2019-10-10] MEDS: PANTOPRAZOLE 40 MG TAB PO SCH (10:44)
[2019-10-10] MEDS: NIFEdipine XL 90 MG TAB PO SCH (10:44)
[2019-10-10] MEDS: clonazePAM 0.5 MG TAB PO SCH ×2 (10:44→21:20)
[2019-10-10] MEDS: PRAVASTATIN 20 MG TAB PO SCH (21:20)
[2019-10-10] MEDS: MIRTAZAPINE 15 MG TAB PO SCH (21:21)
[2019-10-11 01:34] VITALS: BP 133/70
[2019-10-11] MEDS: INSULIN REGULAR, HUMAN 100 UNITS/1 ML SUB-Q SCH ×2 (07:39→11:45)
[2019-10-11] MEDS: metFORMIN 500 MG TAB PO SCH (07:45)
[2019-10-11] MEDS: GABAPENTIN 400 MG CAP PO SCH (07:45)
--- NOTE | 2019-10-11 08:44 | Discharge Summary ---
Providers - Providers Date of Admission: 10/05/19 15:46 Date of discharge: 10/11/19 Attending physician: MARYLIN TERRY MD 10/07/19 09:02 Consult to Physician [CONS] Routine Comment: Consulting Provider: DREW COLON Physician Instructions: [facility] PATIENT Reason For Exam: H&P Primary care physician: SALES TRAINER Hospitalization Reason for admission: Found in a ditch confused Condition: Good Hospital course: The patient was provided inpatient psychiatric treatment with safe and supportive environment, group therapy, individual counseling, psychiatric medication, medication adjustment, adverse effect monitor, medical evaluation, medical treatment, social service assessment, family/social support meeting, placement assessment and psycho-education. The patients mood, anxiety, thoughts, stress management skill, cognition, impulse/anger control, motivation, understanding of disease, compliance to treatment and appreciation on family/social support are improved and stabilized. At the time of discharge, the patient had no suicidal ideas, no homicidal ideas, no aggressive thoughts, no endangering behavior and no debilitating adverse effects. The patient agreed on the treatment plan, understood the risk, benefit, alternative treatment, potential consequence of no treatment, and gave informed consent. Disposition: DC-01 TO HOME OR SELFCARE Allergies/Adverse Reactions: Allergies Penicillins Adverse Reaction (Verified 10/05/19 10:10) Hives Vital Signs: Last Vital Signs Temp 98.0 F 10/10/19 19:37 Pulse 92 H 10/10/19 19:37 Resp 18 10/10/19 19:37 BP 133/70 10/10/19 19:37 Pulse Ox 96 10/10/19 19:37 Last Lab: Laboratory Last Values WBC 7.5 K/mm3 (4.5-11.0) 10/07/19 10:06 RBC 4.52 M/mm3 (3.65-5.03) 10/07/19 10:06 Hgb 11.5 gm/dl (11.8-15.2) L 10/07/19 10:06 Hct 35.3 % (35.5-45.6) L 10/07/19 10:06 MCV 78 fl (84-94) L 10/07/19 10:06 MCH 26 pg (28-32) L 10/07/19 10:06 MCHC 33 % (32-34) 10/07/19 10:06 RDW 18.3 % (13.2-15.2) H 10/07/19 10:06 Plt Count 222 K/mm3 (140-440) 10/07/19 10:06 Lymph % (Auto) Senior Sourcing Manager 10/05/19 20:39 [place] % (Auto) Senior Sourcing Manager 10/05/19 20:39 Eos % (Auto) Senior Sourcing Manager 10/05/19 20:39 Baso % (Auto) Senior Sourcing Manager 10/05/19 20:39 Lymph # Senior Sourcing Manager 10/05/19 20:39 [place] # Senior Sourcing Manager 10/05/19 20:39 Eos # Senior Sourcing Manager 10/05/19 20:39 Baso # Senior Sourcing Manager 10/05/19 20:39 Seg Neutrophils % Senior Sourcing Manager 10/05/19 20:39 Seg Neutrophils # Senior Sourcing Manager 10/05/19 20:39 Sodium 139 mmol/L (137-145) 10/07/19 10:06 Potassium 4.3 mmol/L (3.6-5.0) 10/07/19 10:06 Chloride 102.5 mmol/L (98-107) 10/07/19 10:06 Carbon Dioxide 24 mmol/L (22-30) 10/07/19 10:06 Anion Gap 17 mmol/L 10/07/19 10:06 BUN 29 mg/dL (9-20) H 10/07/19 10:06 Creatinine 1.2 mg/dL (0.8-1.5) 10/07/19 10:06 Estimated GFR > 60 ml/min 10/07/19 10:06 BUN/Creatinine Ratio 24 % 10/07/19 10:06 Glucose 260 mg/dL (75-100) H 10/07/19 10:06 POC Glucose 125 (70-105) H 10/11/19 07:44 Hemoglobin A1c 7.3 % (4-6) H 10/05/19 20:34 Calcium 8.7 mg/dL (8.4-10.2) 10/07/19 10:06 Total Bilirubin 0.20 mg/dL (0.1-1.2) 10/07/19 10:06 AST 40 units/L (5-40) 10/07/19 10:06 ALT 72 units/L (7-56) H 10/07/19 10:06 Alkaline Phosphatase 269 units/L (35-129) H 10/07/19 10:06 Total Protein 6.8 g/dL (6.3-8.2) 10/07/19 10:06 Albumin 3.6 g/dL (3.9-5) L 10/07/19 10:06 Albumin/Globulin Ratio 1.1 % 10/07/19 10:06 Triglycerides 46 mg/dL (2-149) 10/05/19 20:37 Cholesterol 190 mg/dL (50-199) 10/05/19 20:37 LDL Cholesterol Direct 97 mg/dL (50-130) 10/05/19 20:37 HDL Cholesterol 90 mg/dL (40-59) H 10/05/19 20:37 Cholesterol/HDL Ratio 2.11 % 10/05/19 20:37 - Discharge Diagnoses (1) Acute psychosis Status: Acute (2) MDD (major depressive disorder), recurrent episode, moderate Status: Acute Core Measure Documentation - Palliative Care Palliative Care/ Comfort Measures: Not Applicable - Core Measures Any of the following diagnoses?: none Exam - Constitutional Vitals: Temp Pulse Resp BP Pulse Ox 98.0 F 92 H 18 133/70 96 10/10/19 19:37 10/10/19 19:37 10/10/19 19:37 10/10/19 19:37 10/10/19 19:37 General appearance: Present: no acute distress, well-nourished - EENT Eyes: Present: PERRL, EOM intact ENT: hearing intact, clear oral mucosa - Neck Neck: Present: supple, normal ROM - Respiratory Respiratory effort: normal Plan Activity: advance as tolerated Weight Bearing Status: Weight Bear as Tolerated Care Plan Goals: Maintain good and stable mental health Plan of Treatment: Take medications as prescribed and attend out-patient appointments regularly Health Concerns: Memory impairment. Assessment: Acute Psychosis, unspecified. Follow up with: PRIMARY CARE, [Primary Care Provider] - 7 Days Prescriptions: Mirtazapine [Remeron 15mg TAB] 15 mg PO QHS #30 tablet clonazePAM [KlonoPIN] 0.5 mg PO BID #60 tablet
[2019-10-11] MEDS: INSULIN NPH/REGULAR 70/30 INJ SUB-Q SCH (09:27)
[2019-10-11] MEDS: clonazePAM 0.5 MG TAB PO SCH (09:28)
[2019-10-11] MEDS: PANTOPRAZOLE 40 MG TAB PO SCH (09:29)
[2019-10-11] MEDS: NIFEdipine XL 90 MG TAB PO SCH (09:29)
== END 2019-10-11 12:12 | disposition home or self-care (01) | DRG 884 ==
LOC: UNDOADMIN 08:37 → 3A 08:37 → 5A 15:46
PROVIDERS: ADMIT Psychiatry & Neurology Psychiatry; ATTEND Psychiatry & Neurology Psychiatry
DX: F03.91 Unspecified dementia, unspecified severity, with behavioral disturbance (principal); F23 Brief psychotic disorder; F33.1 Major depressive disorder, recurrent, moderate; J44.9 Chronic obstructive pulmonary disease, unspecified; E11.9 Type 2 diabetes mellitus without complications; K21.9 Gastro-esophageal reflux disease without esophagitis; I50.9 Heart failure, unspecified; I11.0 Hypertensive heart disease with heart failure; F17.210 Nicotine dependence, cigarettes, uncomplicated; B19.20 Unspecified viral hepatitis C without hepatic coma; F41.9 Anxiety disorder, unspecified; Z88.0 Allergy status to penicillin; Z79.899 Other long term (current) drug therapy; Z79.84 Long term (current) use of oral hypoglycemic drugs; Z90.49 Acquired absence of other specified parts of digestive tract
CPT/HCPCS: 36415; 80053; 80061; 82962; 83036; 85025; 85027; G0378; A9270-GY; J1815; J3246

== ENCOUNTER 2020-02-13 10:25 | Emergency (ER) | payer MEDICARE ==
[2020-02-13 11:20] LABS: Basophils # (Auto) 0.1 K/mm3 (0.0-0.1); Basophils % (Auto) 0.8 % (0.0-1.8); Eosinophils # (Auto) 0.4 K/mm3 (0.0-0.4); Eosinophils % (Auto) 4.2 % (0.0-4.3); Hematocrit 39.6 % (35.5-45.6); Lymphocytes # (Auto) 1.4 K/mm3 (1.2-5.4); Mean Corpuscular HGB Conc 33 % (32-34); Mean Corpuscular Volume 76 fl (84-94); Monocytes # (Auto) 0.9 K/mm3 (0.0-0.8); Monocytes % (Auto) 10.2 % (0.0-7.3); Platelet Count 283 K/mm3 (140-440)
[2020-02-13] MEDS ORDERED: LIDOCAINE VISCOUS 2% 15 ML ORAL LIQD PO ONE (11:30)
[2020-02-13] MEDS ORDERED: fentaNYL 100 MCG/2 ML INJ IV ONE (11:30)
[2020-02-13] MEDS ORDERED: ALUM-MAG HYDROXIDE-SIMETHICONE 200-200-20MG/5ML ORAL LIQD 30 ML PO ONE (11:30)
[2020-02-13] MEDS ORDERED: ONDANSETRON 4 MG/2 ML INJ IV ONE (11:30)
--- NOTE | 2020-02-13 11:30 | Emergency Department Report ---
HPI - General Chief Complaint: Abdominal Pain Time Seen by Provider: 02/13/20 11:14 - HPI HPI: Room 5 The patient is a 69-year-old male present with chief complaint for abdominal pain where he underwent a CT scan and MRI of the abdomen in addition to an EGD. Patient states his EGD revealed multiple ulcers and a scan showed a mass on the liver. The patient states he has been unable to get his Protonix filled secondary to financial difficulties. Patient states he comes to the emergency department today because it hurts whenever he eats and has been unable to sleep. Patient states he has had intermittent suicidal ideation for the past couple of days. Patient denies having active plan. Patient denies fever but admits to nausea without vomiting. Patient currently gives his pain a score of 9.5/10 ED Past Medical Hx - Past Medical History Previous Medical History?: Yes Hx Hypertension: Yes Hx Congestive Heart Failure: Yes (Diastolic dysfunction) Hx Diabetes: Yes Hx Renal Disease: Yes (hx ARF) Hx Arthritis: Yes Hx COPD: Yes Hx Dementia: Yes Additional medical history: Degenerative disc disease, gout, pancreatitis (September 2019) - Surgical History Past Surgical History?: Yes Hx Cholecystectomy: Yes - Family History Family history: no significant - Social History Smoking Status: Current Every Day Smoker (1 pack/day) Substance Use Type: Marijuana - Medications Home Medications: Home Medications Medication Instructions Recorded Confirmed Last Taken Type DULoxetine [Cymbalta] 30 mg PO DAILY 10/05/19 10/05/19 Unknown History Gabapentin [Neurontin] 800 mg PO TID 10/05/19 10/05/19 Unknown History Lasix TAB 20 mg PO PRN PRN 10/05/19 10/05/19 Unknown History NIFEdipine XL [Procardia Xl] 90 mg PO DAILY 10/05/19 10/05/19 Unknown History Omeprazole 40 mg PO DAILY 10/05/19 10/05/19 Unknown History Simvastatin 10 mg PO HS 10/05/19 10/05/19 Unknown History metFORMIN XR 750 mg PO DAILY 10/05/19 10/05/19 Unknown History Mirtazapine [Remeron 15mg TAB] 15 mg PO QHS #30 tablet 10/11/19 Unknown Rx clonazePAM [KlonoPIN] 0.5 mg PO BID #60 tablet 10/11/19 Unknown Rx ED Review of Systems ROS: Stated complaint: ABD PAIN/SUICIDAL THOUGHTS Other details as noted in HPI Constitutional: denies: fever Eyes: denies: eye pain ENT: denies: throat pain Respiratory: no symptoms reported Cardiovascular: denies: chest pain Endocrine: no symptoms reported Gastrointestinal: abdominal pain, nausea. denies: vomiting Musculoskeletal: denies: back pain Neurological: denies: headache Psychiatric: suicidal thoughts Physical Exam - Physical Exam Vital Signs: Vital Signs 02/13/20 02/13/20 10:33 10:34 Temperature 97.6 F Pulse Rate 81 Blood Pressure 161/77 O2 Sat by Pulse 96 Oximetry Physical Exam: GENERAL: The patient is well-developed well-nourished male sitting on stretcher appearing to be in mild discomfort. [] HEENT: Normocephalic. Atraumatic. Extraocular motions are intact. Patient has moist mucous membranes. NECK: Supple. Trachea midline CHEST/LUNGS: Clear to auscultation. There is no respiratory distress noted. HEART/CARDIOVASCULAR: Regular. There is no tachycardia. There is no gallop rub or murmur. ABDOMEN: Abdomen is soft, with mild discomfort to palpation in the midepigastric region. There is no tenderness to palpation elsewhere in the abdomen. There is no rebound or guarding. Patient has normal bowel sounds. There is no abdominal distention. SKIN: There is no rash. There is no edema. There is no diaphoresis. NEURO: The patient is awake, alert, and oriented. The patient is cooperative. The patient has normal speech MUSCULOSKELETAL: There is no evidence of acute injury. ED Course Vital Signs 02/13/20 02/13/20 10:33 10:34 Temperature 97.6 F Pulse Rate 81 Blood Pressure 161/77 O2 Sat by Pulse 96 Oximetry ED Medical Decision Making - Lab Data Result diagrams: 02/13/20 10:54 02/13/20 10:54 Laboratory Tests 02/13/20 02/13/20 02/13/20 10:54 10:54 10:54 WBC RBC Hgb Hct MCV MCH MCHC RDW Plt Count Lymph % (Auto) [place] % (Auto) Eos % (Auto) Baso % (Auto) Lymph # [place] # Eos # Baso # Seg Neutrophils % Seg Neutrophils # Sodium 134 L Potassium 4.5 Chloride 96.4 L Carbon Dioxide 24 Anion Gap 18 BUN 16 Creatinine 1.1 Estimated GFR > 60 BUN/Creatinine Ratio 15 Glucose 210 H POC Glucose Calcium 10.0 Urine Color Urine Turbidity Urine pH Ur Specific [place] Urine Protein Urine Glucose (UA) Urine Ketones Urine Blood Urine Nitrite Urine Bilirubin Urine Urobilinogen Ur Leukocyte Esterase Urine WBC (Auto) Urine RBC (Auto) Urine Bacteria (Auto) Salicylates < 0.3 L Urine Opiates Screen Urine Methadone Screen Acetaminophen < 5.0 L Ur Barbiturates Screen Ur Phencyclidine Scrn Ur Amphetamines Screen U Benzodiazepines Scrn Urine Cocaine Screen U Marijuana (THC) Screen Drugs of Abuse Note Plasma/Serum Alcohol 02/13/20 02/13/20 02/13/20 10:54 10:54 12:27 WBC 8.6 RBC 5.20 H Hgb 13.0 Hct 39.6 MCV 76 L MCH 25 L MCHC 33 RDW 20.9 H Plt Count 283 Lymph % (Auto) 16.0 [place] % (Auto) 10.2 H Eos % (Auto) 4.2 Baso % (Auto) 0.8 Lymph # 1.4 [place] # 0.9 H Eos # 0.4 Baso # 0.1 Seg Neutrophils % 68.8 Seg Neutrophils # 6.0 Sodium Potassium Chloride Carbon Dioxide Anion Gap BUN Creatinine Estimated GFR BUN/Creatinine Ratio Glucose POC Glucose Calcium Urine Color Straw Urine Turbidity Clear Urine pH 6.0 Ur Specific [place] 1.009 Urine Protein <15 mg/dl Urine Glucose (UA) Neg Urine Ketones Neg Urine Blood Neg Urine Nitrite Neg Urine Bilirubin Neg Urine Urobilinogen < 2.0 Ur Leukocyte Esterase Sm Urine WBC (Auto) 7.0 H Urine RBC (Auto) 2.0 Urine Bacteria (Auto) 1+ Salicylates Urine Opiates Screen Urine Methadone Screen Acetaminophen Ur Barbiturates Screen Ur Phencyclidine Scrn Ur Amphetamines Screen U Benzodiazepines Scrn Urine Cocaine Screen U Marijuana (THC) Screen Drugs of Abuse Note Plasma/Serum Alcohol < 0.01 02/13/20 02/13/20 12:27 14:15 WBC RBC Hgb Hct MCV MCH MCHC RDW Plt Count Lymph % (Auto) [place] % (Auto) Eos % (Auto) Baso % (Auto) Lymph # [place] # Eos # Baso # Seg Neutrophils % Seg Neutrophils # Sodium Potassium Chloride Carbon Dioxide Anion Gap BUN Creatinine Estimated GFR BUN/Creatinine Ratio Glucose POC Glucose 148 H Calcium Urine Color Urine Turbidity Urine pH Ur Specific [place] Urine Protein Urine Glucose (UA) Urine Ketones Urine Blood Urine Nitrite Urine Bilirubin Urine Urobilinogen Ur Leukocyte Esterase Urine WBC (Auto) Urine RBC (Auto) Urine Bacteria (Auto) Salicylates Urine Opiates Screen Presumptive negative Urine Methadone Screen Presumptive negative Acetaminophen Ur Barbiturates Screen Presumptive negative Ur Phencyclidine Scrn Presumptive negative Ur Amphetamines Screen Presumptive negative U Benzodiazepines Scrn Presumptive negative Urine Cocaine Screen Presumptive negative U Marijuana (THC) Screen Presumptive negative Drugs of Abuse Note Disclamer Plasma/Serum Alcohol - Differential Diagnosis Ulcer pain Critical care attestation.: If time is entered above; I have spent that time in minutes in the direct care of this critically ill patient, excluding procedure time. ED Disposition Clinical Impression: Suicidal ideation, Peptic ulcer disease, Abdominal pain Disposition: DC/TX-65 PSY HOSP/PSY UNIT Is pt being admited?: No Does the pt Need Aspirin: No Condition: Stable Time of Disposition: 14:09 (Awaiting acceptance)
[2020-02-13 11:31] LABS: Red Cell Distribution Width 20.9 % (13.2-15.2)
[2020-02-13 11:35] LABS: BUN/Creatinine Ratio 15; Blood Urea Nitrogen 16 mg/dL (9-20); Hemolysis Index 9
[2020-02-13 12:44] LABS: Bacteria,Urine 1+ /HPF (Negative); Bilirubin,Urine NEG (Negative); Blood,Urine NEG (Negative); Color,Urine Straw (Yellow); Protein,Urine <15 mg/dL mg/dL (Negative); Urobilinogen,Urine < 2.0 mg/dL (<2.0)
[2020-02-13 13:02] LABS: Amphetamine Screen,Urine PRESUMPTIVE NEGATIVE; Benzodiazepines Screen,Urine PRESUMPTIVE NEGATIVE; Cannabinoid Screen,Urine PRESUMPTIVE NEGATIVE; Cocaine Screen,Urine PRESUMPTIVE NEGATIVE; Methadone Screen,Urine PRESUMPTIVE NEGATIVE; Opiate Screen,Urine PRESUMPTIVE NEGATIVE
[2020-02-13] MEDS ORDERED: PANTOPRAZOLE 40 MG INJ IV ONE (13:43)
[2020-02-13] MEDS ORDERED: levoFLOXacin 250 MG TAB PO SCH (15:00)
[2020-02-13] MEDS ORDERED: FAMOTIDINE 20 MG TAB PO ONE (19:47)
[2020-02-13] MEDS ORDERED: ACETAMINOPHEN 325 MG TAB PO ONE (23:41)
[2020-02-14 07:32] VITALS: BP 145/77
== END 2020-02-14 08:38 | disposition home or self-care (01) ==
LOC: ED 10:25
DX: K27.3 Acute peptic ulcer, site unspecified, without hemorrhage or perforation (principal); R45.851 Suicidal ideations; I11.0 Hypertensive heart disease with heart failure; E13.69 Other specified diabetes mellitus with other specified complication; J44.9 Chronic obstructive pulmonary disease, unspecified; F03.90 Unspecified dementia, unspecified severity, without behavioral disturbance, psychotic disturbance, mood disturbance, and anxiety; M19.90 Unspecified osteoarthritis, unspecified site; M50.30 Other cervical disc degeneration, unspecified cervical region; F17.200 Nicotine dependence, unspecified, uncomplicated; F12.10 Cannabis abuse, uncomplicated; Z90.49 Acquired absence of other specified parts of digestive tract; Z79.899 Other long term (current) drug therapy
CPT/HCPCS: 36415; 80048; 80307; 81001; 82962; 85025; 96374; 96375; 99284; C9113; J2405; J3010; 80320; G0480